=== PATIENT | female | born 1965 | race Caucasian/White ===

== ENCOUNTER → 2016-04-15 | Outpatient (CLI) | payer OTHER ==
[~2016-04-15] MED LIST: ALDACTONE 25MG25 MG PO; AMLO5TAB PO; CITALOPRAM10 MG PO; CYMBALTA30 MG PO; FLEXERIL10 M1 PO; HYDROCHLOROTHIA25 M1 PO; HYDROXYCHLOROQ200 MG PO; LEVOTHYROXINE0.2 M2 PO; MACROBID100 M3 PO; MAG-SO480 MG PO; METOPROLOL SUC100 M2 PO; METOPROLOL25 MG PO; PREDNISONE 10MG10 MG PO; PREDNISONE 20MG20 MG PO; SPIRONOLACTONE50 MG PO; SYNTHROID 0.0.125 MG PO; SYNTHROID 0.10.15 MG PO; SYNTHROID0.025 MG PO; SYNTHROID0.2 MG PO; TRAMADOL50 M1 PO; VIBRAMYCIN 100100 MG PO; VICODIN 5/500 T1 TAB PO; VITAMIN C100 M1 PO; WATER PILL; ZITHROMAX Z-PA250 M1 PO
--- NOTE | 2016-04-16 09:50 | RADIOLOGY REPORT PS360 ---
MRI-UP EXT ANY JNT W/O-RT HISTORY: Right shoulder pain with limited range of motion RIGHT SHOULDER PAIN COMPARISON: Radiograph 04/08/2016 TECHNIQUE: Standard multiplanar multiecho sequences are performed without contrast. FINDINGS: There is mild acromioclavicular arthropathy with hypertrophic change of the acromioclavicular joint. Small amount fluid is present along the acromion at the AC joint. There is mild subacromial stenosis. There is a tear of the distal aspect of the supraspinatus tendon at the insertion on the greater tuberosity. There may be some tendinous fibers preserved along the inferior margin of this tear. The tendon is not yet retracted. Increased T2 signal is present involving the supraspinatus and infraspinatus tendons with thickening consistent with tendinopathy/tendinosis. Partial tear also suspected of the supraspinatus in the infraacromial region. No obvious labral tear. Bicipital tendon is in place. Subscapularis and teres minor tendons have an unremarkable appearance. No fracture or dislocation. IMPRESSION: 1. Tendinopathy/tendinosis of both supraspinatus and infraspinatus tendons with at least a partial tear involving the distal aspect of the supraspinatus tendon and in the subacromial region also of the supraspinatus tendon. 2. Acromioclavicular arthropathy with subacromial stenosis.
== END ==
LOC: RAD 08:27
DX: M25.511 Pain in right shoulder (principal)

== ENCOUNTER → 2017-02-24 | Outpatient (CLI) | payer OTHER ==
--- NOTE | 2017-02-28 06:07 | RADIOLOGY REPORT PS360 ---
MRI-UP EXT ANY JNT W/O-RT HISTORY: Right shoulder pain, recent shoulder surgery with persistent pain IMPINGEMENT SYNDROME OF RT SHOULDER ORDERING PHYSICIAN: Nixon Deluca MD PATIENT AGE: 51 years COMPARISON: Radiograph of 09/29/2016 and MRI 04/15/2016 TECHNIQUE: Standard multiplanar multiecho sequences are performed without contrast. FINDINGS: Prior osteotomy of the distal clavicle with small cystic area at the acromioclavicular region measuring 8 mm. No evidence of impingement upon the supraspinatus muscle or tendon. There is diffuse thickening of the supraspinatus tendon. There is reported prior supraspinatus tendon repair. The previously described area of focal increased T2 signal at the distal and anterior aspect of the supraspinatus tendon longer apparent. There is diffuse thickening of the infraspinatus tendon. Fluid is present in the subdeltoid region superior to the repaired supraspinatus tendon. Artifact is present from metallic likes about the shoulder. An anchor screw is present in the anterior proximal aspect of the humerus. There is tendinopathy/tendinosis of the subscapularis tendon. The teres minor tendon is intact. No obvious labral tear. No fracture or dislocation. No lytic or destructive changes evident. IMPRESSION: 1. Status post repair of the rotator cuff with diffuse tendinopathy/tendinosis of the supraspinatus, infraspinatus, and subscapularis tendons with no obvious complete tendon tear at this time. 2. Small amount of subdeltoid fluid. 3. Postsurgical changes. 4. No evidence of labral tear.
== END ==
LOC: RAD 08:56
DX: M75.41 Impingement syndrome of right shoulder (principal)